=== PATIENT | male | born 1960 | race African-American/Black ===

== ENCOUNTER → 2016-05-31 | Outpatient (CLI) | payer OTHER ==
[~2016-05-31] MED LIST: AMLODIPINE BESY10 MG PO; ASPIR-LOW81 MG PO; ENALAPRIL MALEA20 MG PO; LOPRESSOR50 MG PO; NAPROXEN500 MG PO; NOHOMEMEDS; OMEPRAZOLE40 M1 PO; TESTOSTERONE60 GM TD
== END | disposition home or self-care (01) ==
LOC: CDC 10:05
DX: R00.1 Bradycardia, unspecified (principal); S83.271A Complex tear of lateral meniscus, current injury, right knee, initial encounter; M23.41 Loose body in knee, right knee
CPT/HCPCS: 93000